=== PATIENT | female | born 1935 ===

== ENCOUNTER 2017-10-29 07:58 | Day surgery (SDC) | payer OTHER ==
[2017-10-29] MEDS ORDERED: Propofol 10 mg/ml Inj (20 ML) ONE (09:28)
[2017-10-29 10:27] VITALS: TEMP 96; O2SAT 100
[2017-10-29 11:29] VITALS: BP 111/49; PULSE 54; RESP 13
== END 2017-10-29 11:00 | disposition home or self-care (01) ==
LOC: C.ENDO 07:58
PROVIDERS: ATTEND Internal Medicine
DX: K62.5 Hemorrhage of anus and rectum (principal); K59.09 Other constipation; Z86.010 Personal history of colon polyps; Z80.0 Family history of malignant neoplasm of digestive organs; K59.00 Constipation, unspecified; K63.5 Polyp of colon; K64.8 Other hemorrhoids; D12.2 Benign neoplasm of ascending colon; D12.0 Benign neoplasm of cecum; D12.3 Benign neoplasm of transverse colon; I10 Essential (primary) hypertension; F41.9 Anxiety disorder, unspecified; J45.909 Unspecified asthma, uncomplicated; E78.00 Pure hypercholesterolemia, unspecified; M19.90 Unspecified osteoarthritis, unspecified site; Z79.82 Long term (current) use of aspirin; Z79.899 Other long term (current) drug therapy; E66.9 Obesity, unspecified; Z68.32 Body mass index [BMI] 32.0-32.9, adult
CPT/HCPCS: 45380; 88305; J2704